=== PATIENT | female | born 1960 | race Caucasian/White ===

== ENCOUNTER 2019-05-16 03:17 | Emergency (ER) | payer OTHER ==
[~2019-05-16] VITALS: Ht 157.5 cm; Wt 79.4 kg
[2019-05-16 03:18] VITALS: BP 169/70
--- NOTE | 2019-05-16 03:18 | NUR ---
TO BED # 11 AMBULATORY
--- NOTE | 2019-05-16 03:20 | NUR ---
58/F PRESENTS TO ED WITH , C/O EPISODES OF SOB WHEN GETTING OUT OF BED, SINCE YESTERDAY. REPORTS L SIDED CP, RADIATING TO BACK OF NECK. REPORTS FEELING ANXIOUS. REPORTS INSOMNIA (3-4 HRS/NIGHT) X1 MONTH. DENIES FEVER, COUGH, N/V. AOX4, PERRLA 3MM, SKIN NORMAL WARM AND DRY, RR EVEN AND UNLABORED. LUNG SOUNDS CLEAR BL. HR 56, SB ON MONITOR. HX DM, HTN, HLD, ANXIETY RX LOSARTAN/HCTZ, METOPROLOL, ROSUSTATIN, CLONIDINE, APRESOLINE FOR ANXIETY WITH NO RELIEF
--- NOTE | 2019-05-16 04:00 | NUR ---
DR HILL MADE AWARE OF PT STATUS. VERBAL ORDER FOR ATIVAN 1MG PO AT THIS TIME.
[2019-05-16] MEDS ORDERED: LORazepam 0.5 MG TAB PO ONE (04:05)
--- NOTE | 2019-05-16 04:50 | NUR ---
PT LAYING IN BED, AT BEDSIDE. RR EVEN AND UNLABORED. PT REPORTS FEELING BETTER AFTER ATIVAN PO. DENIES ANY CP OR SOB. DR HILL MADE AWARE.
[2019-05-16 05:21] VITALS: BP 116/62
--- NOTE | 2019-05-16 05:21 | NUR ---
Patient discharged with v/s stable by Dr. Navarro. Written and verbal after care instructions given and explained by Dr. Navarro. Patient verbalized understanding. Ambulatory with steady gait. All questions addressed prior to discharge by Dr. Navarro. Advised to follow up with PMD by Dr. Navarro.
== END 2019-05-16 05:21 | disposition home or self-care (01) ==
LOC: MED 03:17
DX: R06.4 Hyperventilation (principal); F41.9 Anxiety disorder, unspecified; E11.9 Type 2 diabetes mellitus without complications; I10 Essential (primary) hypertension; E78.5 Hyperlipidemia, unspecified; Z88.0 Allergy status to penicillin; Z98.890 Other specified postprocedural states
CPT/HCPCS: 82948; 93005; 99283

== ENCOUNTER 2019-08-06 21:11 | Emergency (ER) | payer OTHER ==
[~2019-08-06] VITALS: Ht 167.6 cm; Wt 73.5 kg
[2019-08-06 21:22] VITALS: BP 134/71
--- NOTE | 2019-08-06 21:43 | NUR ---
58 Y/O FEMALE BIB . LOWER ABD PAIN STARTING THIS AFTERNOON, DENIES N/V/D. PATIENT SI A/XOX4 AND FOLLOWS COMMANDS. BOWEL SOUNDS ARE HEARD THROUGHOUT ALL FOUR QUADRANTS. STOMACH IS SOFT AND ROUND. PAIN IS 6/10 AND PT. EXHIBITS SLIGHT FACIAL GRIMACING UPON PALPATION. ERMD MADE AWARE OF STATUS. SIDERAILSX1. PLACED ON MONITOR. AT BEDSIDE. RX METOPROLOL, ROSUVASTATIN , LOSARTAN, CLINIDINE PMH HLD, HTN, ANXIETY
--- NOTE | 2019-08-06 21:49 | NUR ---
Dr. Palomares examining patient.
--- NOTE | 2019-08-06 21:50 | NUR ---
KHAI MAURER AT BEDSIDE.
[2019-08-06] MEDS ORDERED: KETOROLAC 60 MG/2 ML VIAL IM ONE (22:00)
--- NOTE | 2019-08-06 22:28 | NUR ---
PATIENT TAKEN TO CT.
[2019-08-07 00:47] VITALS: BP 134/71
--- NOTE | 2019-08-07 00:47 | NUR ---
Patient discharged with v/s stable. Written and verbal after care instructions given and explained. Patient alert, oriented and verbalized understanding of instructions. Ambulatory with steady gait. All questions addressed prior to discharge. ID band removed. Patient advised to follow up with PMD. Rx of LACTULOSE 10G/15ML, 10ML 2 TSP; MINERAL OIL 15ML 1 TBSP given. Patient educated on indication of medication including possible reaction and side effects. Opportunity to ask questions provided and answered.
== END 2019-08-07 00:47 | disposition home or self-care (01) ==
LOC: MED 21:11
DX: K59.00 Constipation, unspecified (principal); E11.9 Type 2 diabetes mellitus without complications; I10 Essential (primary) hypertension; F41.9 Anxiety disorder, unspecified; Z98.890 Other specified postprocedural states; Z88.0 Allergy status to penicillin
CPT/HCPCS: 74176; 99284; J1885; 93005